=== PATIENT | male | born 1995 | race Caucasian/White ===

== ENCOUNTER 2017-07-18 03:20 | Emergency (ER) | payer OTHER ==
--- NOTE | 2017-07-18 03:22 | EDPHY ---
H & P Time Seen by Provider: 07/18/17 03:22 HPI/ROS: HPI CHIEF COMPLAINT: Shortness of breath, tingling around mouth HISTORY OF PRESENT ILLNESS: Patient is a 22-year-old male, is otherwise healthy does have a history of asthma, he presents emergency room shortness of breath. He states he was trying to go to sleep tonight and felt very short of breath. Hyperventilating. Has numbness and tingling around his mouth. Not his hands. He states this started 2 hr ago. Unable to control his respiratory rate. He states it is much improved since leaving [place] house. [place]. After returning down to [place] and trying to go to sleep tonight he became short of breath. Denies productive cough. Denies fever. Does complain of burning pain in the right side of his chest. No pleuritic pain. No hemoptysis. No history of DVT or PE. No history of cardiac disease. Past Medical History: Asthma history Past Surgical History: No significant surgical history Social History: Lives locally, denies drugs alcohol tobacco. Family History: Noncontributory ROS REVIEW OF SYSTEMS: A comprehensive 10 point review of systems is otherwise negative aside from elements mentioned in the history of present illness. Exam Constitutional hyperventilating, anxious, triage nursing summary reviewed, vital signs reviewed, awake/alert. Eyes normal conjunctivae and sclera, EOMI, PERRLA. HENT normal inspection, atraumatic, moist mucus membranes, no epistaxis, neck supple/ no meningismus, no raccoon eyes. Respiratory hyperventilating, good air movement bilaterally, no wheezing, clear to auscultation bilaterally, normal breath sounds, no respiratory distress, Cardiovascular rate normal, regular rhythm, no murmur, no edema, distal pulses normal. Gastrointestinal soft, non-tender, no rebound, no guarding, normal bowel sounds, no distension, no pulsatile mass. Genitourinary no CVA tenderness. Musculoskeletal no midline vertebral tenderness, full range of motion, no calf swelling, no tenderness of extremities, no meningismus, good pulses, neurovascularly intact. Skin pink, warm, & dry, no rash, skin atraumatic. Neurologic awake, alert and oriented x 3, AAOx3, moves all 4 extremities equally, motor intact, sensory intact, CN II-XII intact, normal cerebellar, normal vision, normal speech. Psychiatric normal mood/affect. Heme/Lymph/Immune no lymphadenopathy. Differential Diagnosis: Includes but is not limited to in a particular order acute anxiety, panic attack, asthma, pneumothorax, high altitude pulmonary edema , viral syndrome, pneumonia, viral pneumonia, bacterial pneumonia Medical Decision Making: Plan for this patient IV establishment EKG, check basic blood work including troponin, D-dimer, chest x-ray, IV Ativan 0.5 mg, and re-evaluate. Re-evaluation: EKG interpretation by me on record in [facility]. Impression time of EKG 3:40 a.m., sinus rhythm rate of [address] elevation or ST depression or T- wave abnormalities. No prolonged intervals unremarkable EKG. 0431: Chest x-ray reviewed. Negative for acute cardiopulmonary disease heart size normal. Lung albright clear. No pneumothorax. No pneumonia. Blood work reviewed negative troponin, normal EKG that is nonischemic. Patient received: IV fluids here and IV Ativan he is feeling much better after 0.5 mg IV Ativan. He is no longer tachypneic. He is resting comfortably. He denies chest pain or shortness of breath. He states he feels greatly improved. Most likely constellation of symptoms acute anxiety. 0453: Patient ambulated well throughout the emergency room without difficulty resting comfortably no acute distress. Like to go home. No shortness of breath or chest pain. EKG, troponin, D-dimer normal. Much improved after IV Ativan. Source: Patient, Family Constitutional: Initial Vital Signs Temperature (C) 36.4 C 07/18/17 03:23 Heart Rate 69 07/18/17 03:23 Respiratory Rate 18 07/18/17 03:23 Blood Pressure 145/80 H 07/18/17 03:23 O2 Sat (%) 98 07/18/17 03:23 O2 Delivery Mode Room Air Allergies/Adverse Reactions: No Known Allergies Allergy (Unverified 07/26/10 12:03) Home Medications: Medication Instructions Recorded Flovent Hfa 07/26/10 Sulfamethox/Trimeth 800/160 Mg 1 tab PO BID #6 tab 07/26/10 [Bactrim DS] Albuterol 07/18/17 Medical Decision Making - Data Points Laboratory Results: Laboratory Results 07/18/17 03:45 07/18/17 03:45 07/18/17 07/18/17 07/18/17 03:45 03:45 03:45 WBC 7.90 10^3/uL 10^3/uL (3.80-9.50) RBC 5.54 10^6/uL 10^6/uL (4.40-6.38) Hgb 17.4 g/dL g/dL (13.7-17.5) Hct 48.2 % % (40.0-51.0) MCV 87.0 fL fL (81.5-99.8) MCH 31.4 pg pg (27.9-34.1) MCHC 36.1 g/dL g/dL (32.4-36.7) RDW 12.4 % % (11.5-15.2) Plt Count 277 10^3/uL 10^3/uL (150-400) MPV 10.9 fL fL (8.7-11.7) Neut % (Auto) 47.9 % % (39.3-74.2) Lymph % (Auto) 41.6 % % (15.0-45.0) [place] % (Auto) 8.2 % % (4.5-13.0) Eos % (Auto) 1.3 % % (0.6-7.6) Baso % (Auto) 0.6 % % (0.3-1.7) Nucleat RBC Rel Count 0.0 % % (0.0-0.2) Absolute Neuts (auto) 3.78 10^3/uL 10^3/uL (1.70-6.50) Absolute Lymphs (auto) 3.29 10^3/uL H 10^3/uL (1.00-3.00) Absolute Monos (auto) 0.65 10^3/uL 10^3/uL (0.30-0.80) Absolute Eos (auto) 0.10 10^3/uL 10^3/uL (0.03-0.40) Absolute Basos (auto) 0.05 10^3/uL 10^3/uL (0.02-0.10) Absolute Nucleated RBC 0.00 10^3/uL 10^3/uL (0-0.01) Immature Gran % 0.4 % % (0.0-1.1) Immature Gran # 0.03 10^3/uL 10^3/uL (0.00-0.10) D-Dimer < 0.27 ug/mLFEU ug/mLFEU (0.00-0.50) Sodium 143 mEq/L mEq/L (135-145) Potassium 4.6 mEq/L mEq/L (3.5-5.2) Chloride 109 mEq/L mEq/L (97-110) Carbon Dioxide 20 mEq/l L mEq/l (22-31) Anion Gap 14 mEq/L mEq/L (8-16) BUN 16 mg/dL mg/dL (7-23) Creatinine 0.7 mg/dL mg/dL (0.7-1.3) Estimated GFR > 60 Glucose 87 mg/dL mg/dL (70-100) Calcium 10.8 mg/dL H mg/dL (8.5-10.4) Phosphorus 3.6 mg/dL mg/dL (2.5-4.5) Magnesium 2.0 mg/dL mg/dL (1.6-2.3) Total Bilirubin 0.5 mg/dL mg/dL (0.1-1.4) Conjugated Bilirubin 0.2 mg/dL mg/dL (0.0-0.5) Unconjugated Bilirubin 0.3 mg/dL mg/dL (0.0-1.1) AST 23 IU/L IU/L (17-59) ALT 42 IU/L IU/L (21-72) Alkaline Phosphatase 100 IU/L IU/L (38-126) Creatine Kinase 112 IU/L IU/L (0-224) CK-MB (CK-2) Fraction 0.90 ng/mL ng/mL (0.00-3.19) Troponin I < 0.012 ng/mL ng/mL (0.000-0.034) NT-Pro-B Natriuret Pep 21 pg/mL pg/mL (0-125) Total Protein 7.1 g/dL g/dL (6.3-8.2) Albumin 4.5 g/dL g/dL (3.5-5.0) Lipase 89 IU/L IU/L (23-300) Medications Given: Discontinued Medications Sodium Chloride (Ns) 1,000 mls @ 0 mls/hr IV EDNOW ONE; Wide Open PRN Reason: Protocol Stop: 07/18/17 03:34 Last Admin: 07/18/17 03:41 Dose: 1,000 mls Lorazepam (Ativan Injection) 0.5 mg IVP EDNOW ONE Stop: 07/18/17 03:34 Last Admin: 07/18/17 03:40 Dose: 0.5 mg Departure - Departure Disposition: Home, Routine, Self-Care Clinical Impression: Anxiety Condition: Good Instructions: Anxiety (ED) Additional Instructions: 1. Return emergency room if he develops worsening symptoms includes chest pain, shortness of breath, fever, vomiting. Referrals: CHRIS RIOS [Primary Care Provider] - As per Instructions
[2017-07-18 03:27] VITALS: TEMP 97.5
[2017-07-18] MEDS ORDERED: LORazepam 2 MG/ML INJ IVP ONE (03:33)
[2017-07-18] MEDS ORDERED: NS 1,000 ML IV ONE (03:33)
--- NOTE | 2017-07-18 03:49 | CPEKG ---
Heart Rate: 60 RR Interval: 1000 P-R Interval: 140 QRSD Interval: 92 QT Interval: 396 QTC Interval: 396 P [place]: 60 QRS [place]: 51 T Wave [place]: 54 EKG Severity - NORMAL ECG - EKG Impression: SINUS RHYTHM Electronically Signed By: Pierce Arevalo 20-Jul-2017 11:11:17
[2017-07-18 03:55] LABS: PLATELET COUNT 277 10^3/uL (150-400)
[2017-07-18 04:09] LABS: CREATINE KINASE 112 IU/L (0-224)
[2017-07-18 04:29] VITALS: RESP 20
[2017-07-18 04:54] VITALS: BP 118/80; PULSE 68; O2SAT 99
== END 2017-07-18 05:01 | disposition home or self-care (01) ==
DX: F41.9 Anxiety disorder, unspecified (principal); J45.909 Unspecified asthma, uncomplicated; E86.9 Volume depletion, unspecified
CPT/HCPCS: 96374; J2060